=== PATIENT | female | born 1990 | race African-American/Black ===

== ENCOUNTER 2017-12-14 06:06 | Inpatient (IN) ==
[2017-12-14] MEDS ORDERED: ONDANSETRON 4 MG/2 ML VIAL IV PRN (07:49)
[2017-12-14] MEDS ORDERED: BUTORPHANOL 2 MG/ML VIAL IV PRN (07:49)
[2017-12-14] MEDS ORDERED: OXYTOCIN/LR 20 UNIT/1,000 ML BAG IV SCH (08:00)
[2017-12-14 08:05] LABS: Basophils % 0.2 % (0.0-0.8); Eosinophils # 0.1 10*3/uL (0.0-0.87); Hematocrit 31.6 VOL% (35.7-47.0); Hemoglobin 10.6 GM/DL (12.0-16.0); Immature Granulocytes % 1.3 %; Immature Granulocytes Absolute 0.12 #; Lymphocytes # 1.5 10*3/uL (1.4-4.0); Lymphocytes % 15.9 % (21.3-54.2); Mean Corpuscular HGB Conc 33.5 GM/DL (32-36); Mean Corpuscular Hemoglobin 27 PG (27-34); Mean Corpuscular Volume 80.2 FL (87-102); Mean Platelet Volume 11.4 FL (9.6-12.0); Monocytes # 0.6 10*3/uL (0.11-0.8); Monocytes % 6.3 % (1.7-12.7); NRBC # 0.02 10*3/uL; Neutrophils # 7.1 10*3/uL (1.4-7.4); Neutrophils % 75.3 % (38.7-73.9); Platelet Count 256 T/CUMM (130-400); Red Blood Count 3.94 MC/CUMM (3.8-5.5); Red Cell Distribution Width 15.6 % (9.3-17.3); White Blood Count 9.4 T/CUMM (4-12)
[2017-12-14] MEDS: LACTATED RINGERS 1,000 ML IV SCH ×2 (08:09→11:06)
[2017-12-14 08:33] LABS: Albumin 2.7 G/DL (3.4-5.0); Bilirubin,Total 0.4 MG/DL (0.2-1.0); Calcium 8.6 MG/DL (8.5-10.1); Osmolality,Calculated 274.5 MOS/KG (273-304); Potassium 3.7 MMOL/L (3.5-5.1); Total Protein 6.7 G/DL (6.4-8.3)
[2017-12-14] MEDS ORDERED: CITRIC ACID/SODIUM CITRATE 30 ML UDCUP PO ONE (09:50)
[2017-12-14] MEDS ORDERED: LACTATED RINGERS 1,000 ML IV ONE (09:50)
[2017-12-14] MEDS ORDERED: FAMOTIDINE 20 MG/2 ML VIAL IV ONE (09:50)
[2017-12-14] MEDS ORDERED: hydrOXYzine HCL 25 MG/1 ML VIAL IM PRN (09:52)
[2017-12-14] MEDS ORDERED: diphenhydrAMINE 50 MG/1 ML VIAL IV PRN ×2 (09:52)
[2017-12-14] MEDS ORDERED: PROMETHAZINE 25 MG/1 ML VIAL IM ONE (09:52)
[2017-12-14] MEDS ORDERED: fentaNYL 2 MCG/ROPIV 0.2% EPID 150 ML EPIDURAL SCH (10:00)
[2017-12-14] MEDS: ePHEDrine 50 MG/ML AMP IV PRN ×2 (11:31→11:38)
[2017-12-14 12:27] LABS: Apearance,Urine CLEAR (Clear); Bilirubin,Urine Negative (Negative); Blood, Urine Negative (Negative); Glucose,Urine (UA) Negative (Negative); Ketones,Urine Negative (Negative); Mucus,Urine Occasional /LPF (Occasional); Nitrite,Urine Negative (Negative); Protein,Urine Negative; RBC,Urine 1 /HPF (0-4); Squamous Epithelial Cell,Urine Occasional /HPF (0-10); Urine Color Yellow (Yellow); WBC,Urine <1 /HPF (0-6)
[2017-12-14] MEDS: ACETAMINOPHEN/CODEINE 300-30 MG TABLET PO PRN (16:18)
[2017-12-14] MEDS: IBUPROFEN 800 MG TABLET PO PRN (16:18)
[2017-12-14] MEDS ORDERED: OXYTOCIN/LR 20 UNIT/1,000 ML BAG IV ONE (18:43)
[2017-12-14] MEDS ORDERED: BENZOCAINE 20%/MENTHOL 0.5% SPRAY 56 GM CAN TOP PRN (20:14)
[2017-12-14] MEDS: DOCUSATE SODIUM 100 MG CAPSULE PO PRN (20:51)
[2017-12-15] MEDS: IBUPROFEN 800 MG TABLET PO PRN ×3 (04:45→23:18)
[2017-12-15] MEDS: ACETAMINOPHEN/CODEINE 300-30 MG TABLET PO PRN ×4 (04:47→23:18)
[2017-12-15 06:47] LABS: Basophils % 0.3 % (0.0-0.8); Eosinophils # 0.1 10*3/uL (0.0-0.87); Eosinophils % 0.8 % (0.00-10.9); Hematocrit 27.2 VOL% (35.7-47.0); Hemoglobin 9.7 GM/DL (12.0-16.0); Immature Granulocytes % 0.9 %; Lymphocytes # 1.6 10*3/uL (1.4-4.0); Lymphocytes % 13.6 % (21.3-54.2); Mean Corpuscular HGB Conc 35.7 GM/DL (32-36); Mean Corpuscular Hemoglobin 28 PG (27-34); Mean Corpuscular Volume 77.7 FL (87-102); Mean Platelet Volume 10.8 FL (9.6-12.0); Monocytes # 0.9 10*3/uL (0.11-0.8); Monocytes % 7.3 % (1.7-12.7); Neutrophils # 9.1 10*3/uL (1.4-7.4); Neutrophils % 77.1 % (38.7-73.9); Platelet Count 228 T/CUMM (130-400); Red Cell Distribution Width 15.7 % (9.3-17.3); White Blood Count 11.7 T/CUMM (4-12)
[2017-12-15] MEDS: DOCUSATE SODIUM 100 MG CAPSULE PO PRN ×2 (10:05→21:01)
[2017-12-16 07:56] VITALS: BP 103/61
[2017-12-16] MEDS: DOCUSATE SODIUM 100 MG CAPSULE PO PRN (08:41)
[2017-12-16] MEDS: IBUPROFEN 800 MG TABLET PO PRN (08:41)
[2017-12-16] MEDS: ACETAMINOPHEN/CODEINE 300-30 MG TABLET PO PRN (08:42)
== END 2017-12-16 11:10 | disposition home or self-care (01) | DRG 560 ==
LOC: N.LDOUT 06:06 → N.LD 06:09 → N.OB 15:35
PROVIDERS: ADMIT Obstetrics & Gynecology; ATTEND Obstetrics & Gynecology

== ENCOUNTER 2022-07-17 11:32 | Inpatient (IN) ==
[2022-07-17] MEDS ORDERED: METHYLERGONOVINE 0.2 MG/1 ML AMP IM PRN (13:12)
[2022-07-17] MEDS ORDERED: ceFAZolin 3,000 MG in SYRINGE 1 EACH IV ONE (13:12)
[2022-07-17] MEDS ORDERED: miSOPROStoL 200 MCG TABLET RECTAL PRN (13:12)
[2022-07-17] MEDS ORDERED: OXYTOCIN/LR 20 UNIT/1,000 ML BAG IV ONE ×2 (13:12→20:53)
[2022-07-17] MEDS ORDERED: TRANEXAMIC ACID 1,000 MG in SODIUM CHLORIDE 0.9% 100 ML IV PRN (13:12)
[2022-07-17] MEDS ORDERED: CITRIC ACID/SODIUM CITRATE 30 ML UDCUP PO ONE (13:12)
[2022-07-17] MEDS ORDERED: FAMOTIDINE 20 MG/2 ML VIAL IV ONE (13:12)
[2022-07-17] MEDS ORDERED: CARBOPROST TROMETHAMINE 250 MCG/ML AMP IM PRN (13:12)
[2022-07-17] MEDS ORDERED: BUPIVACAINE SPINAL 0.75% 2 ML AMP SPINAL ONE (13:18)
[2022-07-17] MEDS ORDERED: ONDANSETRON 4 MG/2 ML VIAL ONE ×2 (13:18)
[2022-07-17] MEDS ORDERED: buprenorphine HCL 0.3 MG/ML VIAL ONE (13:18)
[2022-07-17] MEDS ORDERED: KETOROLAC 30 MG/1 ML VIAL ONE (13:19)
[2022-07-17] MEDS ORDERED: ACETAMINOPHEN INJ 1,000 MG/100 ML VIAL IV ONE (13:19)
[2022-07-17] MEDS: LACTATED RINGERS 1,000 ML IV SCH ×2 (13:25→14:09)
[2022-07-17] MEDS ORDERED: OXYTOCIN/LR 30 UNIT/1,000 ML BAG IV ONE (13:27)
[2022-07-17] MEDS ORDERED: OXYTOCIN 10 UNIT/ML VIAL IM ONE (13:27)
[2022-07-17 13:33] LABS: Basophils % 0.2 % (0.0-0.8); Eosinophils # 0.1 10*3/uL (0.0-0.87); Eosinophils % 0.6 % (0.00-10.9); Hematocrit 33.7 VOL% (35.7-47.0); Hemoglobin 11.5 GM/DL (12.0-16.0); Immature Granulocytes % 4.6 %; Immature Granulocytes Absolute 0.73 #; Lymphocytes # 1.9 10*3/uL (1.4-4.0); Lymphocytes % 11.8 % (21.3-54.2); Mean Corpuscular HGB Conc 34.1 GM/DL (32-36); Mean Platelet Volume 10.7 FL (9.6-12.0); Monocytes % 6.3 % (1.7-12.7); Neutrophils % 76.5 % (38.7-73.9); Platelet Count 302 T/CUMM (130-400); Red Blood Count 4.16 MC/CUMM (3.8-5.5); Red Cell Distribution Width 15.9 % (9.3-17.3); White Blood Count 15.7 T/CUMM (4-12)
[2022-07-17 13:54] LABS: Alanine Aminotransferase 20 U/L (13-56); Albumin 2.8 G/DL (3.4-5.0); Alkaline Phosphatase 79 U/L (45-117); Aspartate Amino Transferase 19 U/L (0-37); Bilirubin,Total < 0.39 MG/DL (0.20-1.00); Blood Urea Nitrogen 4 MG/DL (7-18); Calcium 9.4 MG/DL (8.5-10.1); Carbon Dioxide 24 MMOL/L (21-32); Chloride 106 MMOL/L (98-107); Glucose 82 MG/DL (74-106); Osmolality,Calculated 268.8 MOS/KG (273-304); Potassium 3.7 MMOL/L (3.5-5.1); Sodium 137 MMOL/L (136-145); Total Protein 7.7 G/DL (6.4-8.2)
[2022-07-17 14:03] LABS: Band Neutrophils 3 % (0-10); Eosinophils 1 % (0-10); Lymphocytes 12 % (20-55); Metamyelocytes 2 %; Total Cells Counted 100
[2022-07-17 14:09] LABS: Anisocytosis Slight; Hypochromia Slight; Platelet Estimate Adequate
[2022-07-17] MEDS ORDERED: ePHEDrine 50 MG/ML VIAL ONE (14:28)
[2022-07-17] MEDS ORDERED: PHENYLEPHRINE 1 MG/10 ML SYRINGE IV ONE (14:48)
[2022-07-17] MEDS ORDERED: DEXAMETHASONE 4 MG/1 ML VIAL ONE (14:50)
[2022-07-17] MEDS ORDERED: LORazepam 2 MG/1 ML VIAL IV PRN (14:59)
[2022-07-17 15:38] LABS: RBC,Urine 1 /HPF (0-4); Squamous Epithelial Cell,Urine Occasional /HPF (0-10)
[2022-07-17 15:44] LABS: Barbiturates Screen,Urine Negative (Negative); Benzodiazepines Screen,Urine Negative (Negative); Cannabinoid Screen,Urine Negative (Negative); Opiate Screen,Urine Negative (Negative); Phencyclidine Screen,Urine Negative (Negative)
[2022-07-17 15:52] LABS: Bilirubin,Urine Negative (Negative); Glucose,Urine (UA) Negative (Negative); Ketones,Urine 15 mg/dL (Negative); Nitrite,Urine Negative (Negative); Protein,Urine Negative (Negative); Urine Appearance Clear (Clear); Urine Color Yellow (Yellow); Urine Specific Gravity 1.015 (1.001-1.035)
[2022-07-17 15:53] LABS: Blood, Urine Trace mg/dL (Negative); Urine Urobilinogen 0.2 eU/dL (<2.0)
[2022-07-17] MEDS ORDERED: KETOROLAC 30 MG/1 ML VIAL IV SCH (18:00)
[2022-07-17] MEDS: KETOROLAC 30 MG/1 ML VIAL IV SCH (21:03)
[2022-07-17] MEDS: FERROUS SULFATE 325 MG TABLET PO SCH (21:03)
[2022-07-17] MEDS: ACETAMINOPHEN 500 MG TABLET PO SCH (21:04)
[2022-07-17] MEDS: DOCUSATE SODIUM 100 MG CAPSULE PO SCH (21:04)
[2022-07-17 22:45] LABS: Basophils % 0.2 % (0.0-0.8); Eosinophils % 0.1 % (0.00-10.9); Hematocrit 29.9 VOL% (35.7-47.0); Hemoglobin 10.5 GM/DL (12.0-16.0); Immature Granulocytes % 2.2 %; Immature Granulocytes Absolute 0.49 #; Lymphocytes % 4.3 % (21.3-54.2); Mean Corpuscular HGB Conc 35.1 GM/DL (32-36); Mean Corpuscular Volume 80.6 FL (87-102); Mean Platelet Volume 10.5 FL (9.6-12.0); Monocytes # 0.9 10*3/uL (0.11-0.8); Neutrophils % 89.2 % (38.7-73.9); Platelet Count 275 T/CUMM (130-400); Red Blood Count 3.71 MC/CUMM (3.8-5.5); Red Cell Distribution Width 15.7 % (9.3-17.3); White Blood Count 22.5 T/CUMM (4-12)
[2022-07-17 23:15] LABS: Lymphocytes 3 % (20-55); Platelet Estimate Adequate; Total Cells Counted 100
[2022-07-18] MEDS: KETOROLAC 30 MG/1 ML VIAL IV SCH ×2 (03:35→09:57)
[2022-07-18] MEDS: ACETAMINOPHEN 500 MG TABLET PO SCH (03:36)
[2022-07-18 05:37] LABS: Basophils % 0.2 % (0.0-0.8); Eosinophils % 0.1 % (0.00-10.9); Hematocrit 29.5 VOL% (35.7-47.0); Hemoglobin 10.2 GM/DL (12.0-16.0); Immature Granulocytes % 1.9 %; Immature Granulocytes Absolute 0.39 #; Lymphocytes # 1.3 10*3/uL (1.4-4.0); Lymphocytes % 6.7 % (21.3-54.2); Mean Corpuscular HGB Conc 34.6 GM/DL (32-36); Mean Corpuscular Volume 80.6 FL (87-102); Mean Platelet Volume 11.2 FL (9.6-12.0); Monocytes # 0.9 10*3/uL (0.11-0.8); Monocytes % 4.3 % (1.7-12.7); Neutrophils % 86.8 % (38.7-73.9); Platelet Count 278 T/CUMM (130-400); Red Blood Count 3.66 MC/CUMM (3.8-5.5); Red Cell Distribution Width 15.6 % (9.3-17.3); White Blood Count 20.1 T/CUMM (4-12)
[2022-07-18 06:00] LABS: Band Neutrophils 3 % (0-10); Hypochromia Slight; Lymphocytes 5 % (20-55); Microcytosis Slight; Platelet Estimate Adequate; Total Cells Counted 100
[2022-07-18] MEDS ORDERED: oxyCODONE/ACETAMINOPHEN 5-325 MG TABLET PO PRN (09:28)
[2022-07-18] MEDS: oxyCODONE/ACETAMINOPHEN 5-325 MG TABLET PO PRN (18:47)
[2022-07-18] MEDS: MAGNESIUM HYDROXIDE SUSP 30 ML UDCUP PO PRN (20:32)
[2022-07-18] MEDS: DOCUSATE SODIUM 100 MG CAPSULE PO SCH (20:32)
[2022-07-18] MEDS: FERROUS SULFATE 325 MG TABLET PO SCH (20:32)
[2022-07-19] MEDS ORDERED: IBUPROFEN 800 MG TABLET PO PRN (01:46)
[2022-07-19] MEDS: oxyCODONE/ACETAMINOPHEN 5-325 MG TABLET PO PRN ×2 (01:55→08:47)
[2022-07-19] MEDS: FERROUS SULFATE 325 MG TABLET PO SCH (08:46)
[2022-07-19] MEDS: DOCUSATE SODIUM 100 MG CAPSULE PO SCH (08:46)
[2022-07-19 08:59] VITALS: BP 113/57
[2022-07-19] MEDS: MAGNESIUM HYDROXIDE SUSP 30 ML UDCUP PO PRN (09:35)
== END 2022-07-19 14:50 | disposition home or self-care (01) | DRG 540 ==
LOC: N.LDOUT 11:32 → N.LD 11:32 → N.OB 17:50
PROVIDERS: ADMIT Obstetrics & Gynecology; ATTEND Obstetrics & Gynecology
PROC: LDCSECT (ICD-10-PCS; 2022-07-17 13:30)